=== PATIENT | male | born 1930 | race Caucasian/White ===

== ENCOUNTER 2019-05-07 09:34 | Emergency (ER) | payer OTHER, BC ==
[2019-05-07 09:43] VITALS: TEMP 97.9; BMI 25.1
--- NOTE | 2019-05-07 09:43 | PDOC ---
History of Present Illness - General Chief Complaint: Urinary Problem Stated Complaint: GROIN PAIN Time Seen by Provider: 05/07/19 09:42 - History of Present Illness Initial Comments: HPI: 88yo M with PMH of prostate CA s/p radiation in 2000, benign familial pemphigus , HTN, HLD presenting with a rash. Patient states he has been having problems with urinary incontinence for the past five years, however it has worsened to the point where he needs to wear diapers. About three weeks ago, he developed a rash in his groin area and saw his urologist who treated him for a bacteriuria. Patient finished a course of bactrim two days ago and saw his urologist again on that day. Tested negative for UTI two days ago. As the rash worsened, his urologist suggested the patient may need to be catheterized because the urinary incontinence was likely preventing his skin from healing. The patient tried a condom catheter yesterday but it did not work as it slipped off. On Saturday, patient saw his post tronic machine operator who started him on doxycycline but patient stopped taking it after two doses because of GI side effects. He has also been using clabetosol and mupirocin cream, but does not think it is helping. Denies dysuria or hematuria. No fever. PCP: Dr. Bejarano Urologist: Dr. Gasca Operator Technician: Dr. Ceja ROS: Constitutional: no fever, no diaphoresis HEENT: no throat pain, no dysphagia Cardiovascular: no chest pain, no palpitations Respiratory: no cough, no shortness of breath Gastrointestinal: no abdominal pain, no nausea Genitourinary: no dysuria, no hematuria Musculoskeletal: no myalgia, no arthralgia Skin: +rash, no itching Neurologic: no headache, no weakness PE: General: Awake, alert, and fully oriented, in no acute distress Head: No signs of trauma Eyes: EOMI, sclera anicteric ENT: Dry mucus membranes Neck: Normal ROM, supple Lungs: Lungs clear, Normal breath sounds Cardio: Regular rhythm, S1 and S2 present Abdomen: Soft, nontender. No guarding, no rebound, no masses Extremities: Normal range of motion, Distal pulses present SKIN: groin area erythematous with plaques and satellite lesions with no areas of fluctuance, does not appear cellulitic, no crepitus, not foul-smelling; multiple ecchymoses on limb (which patient says are at baseline); Otherwise warm , Dry, normal turgor Neurologic: Cranial nerves II through XII grossly intact. Normal speech ED Course/MDM: DDX including but not limited to dermatitis, fungal rash, cellulitis Exam consistent with fungal rash; I have a low suspicion for Fourner's Gangrene as patient is non-toxic appearing and without fever. There is no crepitus present in the affected area, nor do I appreciate purulent drainage. Tylenol UA 05/07/19 09:[address] for infection Dr. Hill discussed case with Dr. Bejarano who agrees with plan for catheter. Dr. Gomez discussed case with Dr. Ceja, dermatology. Recommended one dose of diflucan today and one in a week. Diflucan ordered and sent to pharmacy. I discussed case with Dr. Bell, urologist, who works with Dr. Gasca. Agrees with plan for catheter. Can follow up with Dr. Gasca on Saturday at 10am. 05/07/19 11:43 Prescriptions sent to pharmacy for diflucan and triple cream Patient instructed to stop clabetosol cream as this may worsen his rash Mendoza care education Return precautions To be discharged 05/07/19 12:09 Past History - Past Medical History Allergies/Adverse Reactions: Allergies Allergy/AdvReac Type Severity Reaction Status Date / Time No Known Allergies Allergy Verified 05/07/19 09:39 Home Medications: Ambulatory Orders Amlodipine Besylate/Benazepril [Lotrel 5-10 mg Capsule] 1 each PO DAILY Atorvastatin Ca [Lipitor -] 10 mg PO HS 01/15/14 Mupirocin Ointment [Bactroban 2% Ointment -] 1 tube TP BID 14 Days applic NS Fluconazole [Diflucan] 150 mg PO ONCE #1 tablet 05/07/19 Zinc Oxide [Triple Paste] 56.7 gm TP DAILY #1 tube 05/07/19 Anemia: No Asthma: No 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) Cardiac Disorders: No CVA: No COPD: No CHF: No Dementia: No Diabetes: No GI Disorders: No Disorders: No HTN: Yes Hypercholesterolemia: Yes Liver Disease: No Seizures: No Thyroid Disease: No - Surgical History Abdominal Surgery: No Appendectomy: No Cardiac Surgery: No Cholecystectomy: No Lung Surgery: No Neurologic Surgery: No Orthopedic Surgery: No - Psycho Social/Smoking Cessation Hx Smoking History: Former smoker Have you smoked in the past 12 months: No If you are a former smoker, when did you quit?: 56 YRS AGO Hx Alcohol Use: Yes (SOCIAL) Drug/Substance Use Hx: No Substance Use Type: None Discharge - Discharge Information Problems reviewed: Yes Clinical Impression/Diagnosis: Rash Condition: Improved Disposition: HOME - Additional Discharge Information Prescriptions: Fluconazole [Diflucan] 150 mg PO ONCE #1 tablet Zinc Oxide [Triple Paste] 56.7 gm TP DAILY #1 tube - Follow up/Referral - Patient Discharge Instructions Patient Printed Discharge Instructions: How to Care for Your Mendoza Catheter -- Male, DI for Rash Additional Instructions: You came to the emergency department for a rash. We placed a urine catheter which you will go home with. Please review the handout about catheter care at home. We discussed your case with your primary care physician, post tronic machine operator, and urologist. Follow up with your urologist on Saturday at 10am. Your workup is not complete until you do so. Follow up with your post tronic machine operator on Saturday at your already scheduled appointment. Your workup is not complete until you do so. Prescriptions sent to your pharmacy. Take as instructed. Stop using the clabetosol cream. Apply [id number] Triple Paste Diaper Rash Ointment to the affected area once daily. You can take [id number] Tylenol or Motrin as needed for pain. Follow the instructions on the medication bottle. Seek immediate medical attention for: if you stop urinating, have worsening rash , or any new or concerning symptoms. If you think you have an emergency, call for medical help right away. - Post Discharge Activity
[2019-05-07] MEDS ORDERED: ACETAMINOPHEN 325 MG TABLET (FP) PO ONE (10:17)
[2019-05-07] MEDS ORDERED: LIDOCAINE HCL 2% JELLY 10 ML CARTRIDGE ONE (10:20)
[2019-05-07] MEDS ORDERED: ACETAMINOPHEN 325 MG TABLET (FP) ONE (10:28)
[2019-05-07] MEDS ORDERED: LIDOCAINE HCL 2% JELLY 10 ML CARTRIDGE UR ONE (10:36)
[2019-05-07 10:49] LABS: EPI CELLS 8.3 /HPF (0-5/HPF); HYALINE CASTS 31 /lpf (0-8); URINE APPEARANCE CLOUDY; URINE BACTERIA 2.2 /hpf (NEGATIVE); URINE BILIRUBIN NEGATIVE (NEGATIVE); URINE COLOR YELLOW; URINE GLUCOSE (UA) NEGATIVE (NEGATIVE); URINE KETONE NEGATIVE (NEGATIVE); URINE LEUK ESTERASE TRACE (NEGATIVE); URINE NITRITE NEGATIVE (NEGATIVE); URINE PROTEIN TRACE (NEGATIVE); URINE RBC 2 /hpf (0-4); URINE UROBILINOGEN 0.2 mg/dL (0.2-1.0); URINE WBC 7 /hpf (0-5)
[2019-05-07] MEDS ORDERED: FLUCONAZOLE 150 MG TABLET PO ONE (11:47)
[2019-05-07] MEDS ORDERED: FLUCONAZOLE 100 MG TABLET (UD) ONE ×2 (11:52→11:54)
--- NOTE | 2019-05-07 12:03 | PDOC ---
Documentation entered by Ary Gaviria SCRIBE, acting as scribe for Rafat Gomez MD. Rafat Gomez MD: This documentation has been prepared by the Khadra macias Nirvannie, SCRIBE, under my direction and personally reviewed by me in its entirety. I confirm that the documentation accurately reflects all work, treatment, procedures, and medical decision making performed by me. Attending Attestation - Resident Resident Name: Radha Torres - ED Attending Attestation I have performed the following: I have examined & evaluated the patient, The case was reviewed & discussed with the resident, I agree w/resident's findings & plan, Exceptions are as noted - HPI HPI: 05/07/19 11:06 The patient is an 88 year old male, with a significant past medical history of HTN, HLD, Prostate CA (s/p radiation), who presents to the emergency department with 3 weeks of a progressively worsening rash. Patient and family at bedside report the rash is located around the penile, testicular, generalized groin area. Patient has a history of urinary incontinence, and is being followed by Dr. Logan, urologist, and was recently placed on Bactrim which he completed for the rash. Patient followed with a home improvement contractor, Dr. Ceja, at which time he was prescribed Mupirocin, Clobetasol, and Doxycycline. The doxycycline caused GI cramping, so it was self DC-ed by the patient 2 days ago. He has been applying the mupirocin and clobatesol but reports significant stinging when applying clobatesol. Family notes he was advised by his urologist he may need catheterization secondary urinary incontinence in order for the rash to get better. He attempted to use a condom catheter yesterday which did not stay on well, prompting his arrival to the ED. He denies any recent fevers, chills, headache or dizziness. He denies any recent nausea, vomiting, diarrhea or constipation. He denies any recent chest pain or shortness of breath. He denies any recent dysuria or hematuria. Allergies: NKDA Social History: Former smoker (Quit >50 years ago). Denies EtOH use and recreational drug use. Primary Care Physician: Dr. Bejarano Music Educator: Dr. Ceja - Physicial Exam PE: 05/07/19 11:52 GENERAL: Awake, alert, and fully oriented, in no acute distress EYES: PERRLA, EOMI, sclera anicteric, conjunctiva clear ENT: Oropharynx clear without exudates. Moist mucosa NECK: Normal ROM, supple, no lymphadenopathy, JVD, or masses LUNGS: Breath sounds equal, clear to auscultation bilaterally. No wheezes, and no crackles HEART: Regular rate and rhythm, normal S1 and S2, no murmurs, rubs or gallops ABDOMEN: Soft, nontender, normoactive bowel sounds. No guarding, no rebound. No masses : Mendoza in place with clear urine draining EXTREMITIES: Normal range of motion, no edema. No cords, erythema, or tenderness NEUROLOGICAL: Normal speech, cranial nerves intact, equal strength and sensation b/l SKIN: Erythematous, scaly rash in the intertiginous area of groin b/l and suprapubic region with satellite lesions. No crepitus in perineal region. No significant drainage or induration. - Medical Decision Making 05/07/19 11:58 88-year-old male presents the emergency department with a rash to his groin area in the setting of chronic urine incontinence and diaper use. Patient with no systemic signs of infection. He is completed a course of Bactrim. He is also been applying clobetasol foam and mupirocin ointment to the rash with minimal improvement. The patient is followed by urologist and home improvement contractor for the rash, and given concern that persistent urinary incontinence is contributing to the rash, he was sent to the emergency department for a Mendoza catheter. On exam, the rash is most consistent with a fungal, possibly candidal infection given location in the intertriginous regions and satellite lesions. Case has been discussed with the patient's home improvement contractor Dr. Ceja. The plan will be to stop the clobetasol foam, give the patient 1 dose of 150mg p.o. Diflucan today, followed by another dose in 1 week. We will also recommend a triple paste, zinc oxide barrier cream for the patient to apply 3 times a day to the affected areas. He has follow-up with Dr. Ceja and Dr. Logan next Saturday. The patient' s primary physician Dr. Bejarano has been updated. At this time, patient is clinically stable for discharge home with close outpatient follow-up as scheduled. Return precautions have been discussed. I discussed the physical exam findings, ancillary test results and final diagnoses with the patient. I answered all of the patient's questions. The patient was satisfied with the care received and felt comfortable with the discharge plan and treatment plan. The patient will call their primary care physician within 24 hours to arrange follow-up and will return to the Emergency Department with any new, persistent or worsening symptoms.
[2019-05-07 12:19] VITALS: BP 124/57; PULSE 87
== END 2019-05-07 12:33 | disposition home or self-care (01) ==
LOC: JER 09:34
PROC: 0T9B70Z Drainage of Bladder with Drainage Device, Via Natural or Artificial Opening (ICD-10-PCS; principal; 2019-05-07)
DX: B35.6 Tinea cruris (principal); N39.498 Other specified urinary incontinence; I10 Essential (primary) hypertension; E78.5 Hyperlipidemia, unspecified; Z85.46 Personal history of malignant neoplasm of prostate; Z85.821 Personal history of Merkel cell carcinoma; Z85.820 Personal history of malignant melanoma of skin; Z92.3 Personal history of irradiation
CPT/HCPCS: 81003; 87086; 99283-25